=== PATIENT | male | born 1975 ===

== ENCOUNTER 2022-06-27 20:22 | Emergency (ER) | payer SELFPAY ==
[~2022-06-27] VITALS: Ht 72 cm; Wt 72.5 kg
[2022-06-27] MEDS ORDERED: TETRACAINE 0.5% OPHTH SOLN 4 ML BTL (SINGLE DOSE ONLY) ONE (20:38)
[2022-06-27] MEDS ORDERED: prednisoLONE 1% OPTH (PRED FORTE) 5 ML BTL OU SCH (21:15)
[2022-06-27] MEDS ORDERED: prednisoLONE 1% OPTH (PRED FORTE) 5 ML BTL ONE (21:15)
--- NOTE | 2022-06-27 21:17 | ED EENT ---
History of Present Illness General Chief Complaint: Eye Problems Stated Complaint: METAL IN RT EYE Nursing Triage Note: patient stats earlier today he went to get into the back of his truck, a wire sticking out went into his right eye. punctured. patient reports he was tired and went sleep. patient has bleeding/ swelling/ bruising on/around right eye. complaint of pain. Source: patient Exam Limitations: no limitations History of Present Illness Date Seen by Provider: Jun 27, 2022 Time Seen by Provider: 20:58 Allergies and Home Medications Allergies Coded Allergies: Penicillins (Unverified Allergy, Mild, 06/27/22) sulfamethoxazole (Unverified Allergy, Mild, 06/27/22) trimethoprim (Unverified Allergy, Mild, 06/27/22) Patient Home Medication List Home Medication List Reviewed: Yes Clindamycin HCl (Clindamycin HCl) 300 Mg Capsule, 300 MG PO TID Prescribed by: JAYJAY SMITH on 06/27/222200 Past Lrnaade-Anddgp-Pwsdsr Hx Patient Social History Tobacco Use?: Yes Tobacco type used: Cigarettes Smoking Status: Current Everyday Smoker Immunizations Up To Date First/Initial COVID19 Vaccinat: none Second COVID19 Vaccination Fidel: none Physical Exam Vital Signs Vital Signs - First Documented 06/27/22 20:34 Temp 35.4 Pulse 74 Resp 20 B/P (MAP) 132/81 (98) Pulse Ox 98 O2 Delivery Room Air Height, Weight, BMI Height: '" Weight: lbs. oz. kg; 139.00 BMI Method: Progress/Results/Core Measures Results/Orders My Orders Orders - JAYJAY SMITH WAX MACHINE OPERATOR Prednisolone 1% Ophthalmic Ally (Pred For (06/27/22 21:15) Prednisolone 1% Ophthalmic Ally (Pred For (06/27/22 21:15) Tobramycin 0.3% Ophth Soln (Tobrex 0.3% (06/27/22 21:30) Erythromycin Ophth Oint (Erythromycin Op (06/27/22 21:21) Clindamycin Capsule (Cleocin Capsule) (06/27/22 21:45) Medications Given in ED Current Medications Medications Dose Ordered Sig/Dom Route Start Time Stop Time Status Last Admin Dose Admin Clindamycin HCl 300 mg ONCE ONCE PO 06/27/22 21:45 06/27/22 21:46 DC 06/27/22 22:08 300 MG Vital Signs/I&O 06/27/22 22:11 Pulse 70 Resp 20 B/P (MAP) 128/81 Pulse Ox 98 O2 Delivery Room Air Blood Pressure Mean: 98 Departure Impression Primary Impression: Laceration, eyelid, right Additional Impressions: Laceration of margin of eyelid Chemosis Disposition: HOME, SELF-CARE Condition: Stable Departure-Patient Inst. Decision time for Depature: 21:55 Referrals: MATTEO HERNANDEZ OD,LOCAL PHYSICIAN (PCP) Primary Care Physician Patient Instructions: Corneal Abrasion (DC) Add. Discharge Instructions: Plan: 1. Follow up with Dr. Golden's office in the morning at 8:00am. You will present to office and notify them you are coming in from ER visit. Your care was discussed with Dr. Granados. 2. Apply eye drops with ointment every 6 hours. 3. You can use saline drop/ Tetracaine solution 2 drops every 4 hours as needed for pain/comfort. 4. Apply ice 20 minutes at a time to help with swelling. Sleep in reclined position. 5. Take Clindamycin 300mg by mouth three times per day and complete full course. 6. Return to ER for any new, concerning, or worsening symptoms. All discharge instructions reviewed with patient and/or family. Voiced understanding. Scripts Clindamycin HCl (Clindamycin HCl) 300 Mg Capsule 300 MG PO TID, #21 CAP 0 Refills Prov: JAYJAY SMITH WAX MACHINE OPERATOR 06/27/22 JAYJAY SMITH WAX MACHINE OPERATOR Jun 27, 2022 21:17
[2022-06-27] MEDS ORDERED: ERYTHROMYCIN OPHTH OINT 1 GM (SINGLE USE) TUBE ONE (21:21)
[2022-06-27] MEDS ORDERED: TOBRAMYCIN (TOBREX) 0.3% OPHTH SOLN 5 ML OU ONE (21:30)
[2022-06-27] MEDS ORDERED: CLINDAMYCIN 150 MG (CLEOCIN) CAP PO ONE (21:45)
[2022-06-27] MEDS ORDERED: CLIN-144 PO (22:01)
[2022-06-27 22:11] VITALS: BP 128/81
[2022-06-28] MEDS ORDERED: TOBRA/DEXAMETH (TOBRADEX) OPHTH SUSP 2.5 ML BTL OU ONE
== END 2022-06-27 22:11 | disposition home or self-care (01) ==
LOC: ER 20:25
DX: S01.111A Laceration without foreign body of right eyelid and periocular area, initial encounter (principal); H11.421 Conjunctival edema, right eye; F17.210 Nicotine dependence, cigarettes, uncomplicated; Z28.310 Unvaccinated for COVID-19; Z88.0 Allergy status to penicillin; Z88.2 Allergy status to sulfonamides; W26.8XXA Contact with other sharp object(s), not elsewhere classified, initial encounter
CPT/HCPCS: 99283

== ENCOUNTER 2022-11-14 12:39 | Emergency (ER) | payer SELFPAY ==
[~2022-11-14] VITALS: Ht 182.8 cm; Wt 74.8 kg
[~2022-11-14 12:39] MED LIST: CLIN-144 PO
[2022-11-14] MEDS ORDERED: NS IV 1000 ML 1,000 ML IV STA (13:04)
--- NOTE | 2022-11-14 13:08 | ED GU-Male ---
General Chief Complaint: - Reproductive Stated Complaint: LOWER BACK AND RT SIDE PAIN Nursing Triage Note: PT AMB TO TRIAGE WITH COMPLAINT OF RIGHT SIDE FLANK PAIN AND PAINFUL URINATION. STATES STARTED IN THE MIDDLE OF THE NIGHT. Source: patient Exam Limitations: no limitations (MICHAEL BRENNER) History of Present Illness Date Seen by Provider: Nov 14, 2022 Time Seen by Provider: 13:06 Initial Comments Patient is a 47-year-old male who presents ED with cute onset of right flank. Started yesterday evening. Denies any trauma or injury. No radiating pain. Described as sharp and constant with episodes of increasing pain. Denies nausea vomiting diarrhea. Reports some discomfort with urination and dark urine. Denies of any penile discharge. History of kidney stones 5 years ago. Denies taking thing for pain. Denies fever, chills, body aches, chest pain, shortness of breath, cough. (MICHAEL BRENNER) Allergies and Home Medications Allergies Coded Allergies: Penicillins (Unverified Allergy, Mild, 06/27/22) sulfamethoxazole (Unverified Allergy, Mild, 06/27/22) trimethoprim (Unverified Allergy, Mild, 06/27/22) Patient Home Medication List Home Medication List Reviewed: Yes (MICHAEL BRENNER) Clindamycin HCl (Clindamycin HCl) 300 Mg Capsule, 300 MG PO TID Prescribed by: JAYJAY SMITH on 06/27/222200 Hydrocodone/Acetaminophen (Hydrocodone-Acetamin 5-325 mg) 5 Mg-325 Mg Tablet, 1 TAB PO Q4H PRN for PAIN-MODERATE (5-7) Prescribed by: KAYLA ADAME on 11/14/22 141 Ondansetron (Ondansetron Odt) 4 Mg Tab.rapdis, 4 MG SL Q4H PRN for NAUSEA/VOMITING Prescribed by: KAYLA ADAME on 11/14/22 141 Tamsulosin HCl (Flomax) 0.4 Mg Cap, 0.4 MG PO DAILY Prescribed by: KAYLA ADAME on 11/14/22 1416 Review of Systems Review of Systems Constitutional: No chills, No diaphoresis, No fever, No malaise EENTM: No ear pain, No blurred vision, No double vision Respiratory: No cough Cardiovascular: No chest pain Gastrointestinal: No abdominal pain, No diarrhea, No nausea, No vomiting Genitourinary: burning; denies discharge; flank pain; denies pain, denies urgency Musculoskeletal: back pain; No joint pain (MICHAEL BRENNER) All Other Systemes Reviewed Negative Unless Noted: Yes (MICHAEL BRENNER) Past Hbzbfid-Ubucob-Xyeunv Hx Patient Social History Tobacco Use?: Yes Tobacco type used: Cigarettes Smoking Status: Current Everyday Smoker Use of E-Cig and/or Vaping dev: No Substance use?: No Alcohol Use?: No Pt feels they are or have been: No (MICHAEL BRENNER) Immunizations Up To Date First/Initial COVID19 Vaccinat: none Second COVID19 Vaccination Fidel: none Third COVID19 Vaccination Date: none (MICHAEL BRENNER) Physical Exam Vital Signs Vital Signs - First Documented 11/14/22 12:48 Temp 36.8 Pulse 79 Resp 16 B/P (MAP) 154/90 (111) Pulse Ox 99 O2 Delivery Room Air (NICOLLE RETANA MD) Vital Signs Capillary Refill : Less Than 3 Seconds (MICHAEL BRENNER) Height, Weight, BMI Height: '" Weight: lbs. oz. kg; 22.00 BMI Method: General Appearance: WD/WN, no apparent distress HEENT: PERRL/EOMI, normal ENT inspection, TMs normal, pharynx normal Neck: non-tender, full range of motion, supple Cardiovascular: regular rate, rhythm, no edema, no gallop, no JVD Respiratory: chest non-tender, lungs clear, normal breath sounds, no respiratory distress, no accessory muscle use Gastrointestinal: normal bowel sounds, non tender, soft, no organomegaly Back: normal inspection, CVA tenderness (R) Extremities: non-tender, normal inspection, no pedal edema Neurologic/Psychiatric: cargo and container inspector II-XII nml as tested, no motor/sensory deficits, alert, normal mood/affect, oriented x 3 Skin: normal color, warm/dry (MICHAEL BRENNER) Progress/Results/Core Measures Suspected Sepsis SIRS Temperature: Pulse: 79 Respiratory Rate: 16 Laboratory Tests 11/14/22 13:15: White Blood Count 5.8 Blood Pressure 154 /90 Mean: 111 Laboratory Tests 11/14/22 13:15: Creatinine 0.91, Platelet Count 312, Total Bilirubin 0.5 (MICHAEL BRENNER) Results/Orders Lab Results Laboratory Tests Test 11/14/22 13:00 11/14/22 13:15 Range/Units Urine Color YELLOW Urine Clarity CLEAR Urine pH 6.5 5-9 Urine Specific [place] 1.020 1.016-1.022 Urine Protein NEGATIVE NEGATIVE Urine Glucose (UA) NEGATIVE NEGATIVE Urine Ketones NEGATIVE NEGATIVE Urine Nitrite NEGATIVE NEGATIVE Urine Bilirubin NEGATIVE NEGATIVE Urine Urobilinogen 0.2 < = 1.0 MG/DL Urine Leukocyte Esterase NEGATIVE NEGATIVE Urine RBC (Auto) 2+ H NEGATIVE Urine RBC RARE /HPF Urine WBC 0-2 /HPF Urine Squamous Epithelial Cells 2-5 /HPF Urine Crystals NONE /LPF Urine Bacteria NEGATIVE /HPF Urine Casts NONE /LPF Urine Mucus NEGATIVE /LPF Urine Other FEW SPERM H /HPF Urine Culture Indicated NO White Blood Count 5.8 4.3-11.0 10^3/uL Red Blood Count 4.65 4.30-5.52 10^6/uL Hemoglobin 13.9 13.3-17.7 g/dL Hematocrit 40 40-54 % Mean Corpuscular Volume 86 80-99 fL Mean Corpuscular Hemoglobin 30 25-34 pg Mean Corpuscular Hemoglobin Concent 35 32-36 g/dL Red Cell Distribution Width 14.1 10.0-14.5 % Platelet Count 312 130-400 10^3/uL Mean Platelet Volume 9.7 9.0-12.2 fL Immature Granulocyte % (Auto) 0 % Neutrophils (%) (Auto) 64 42-75 % Lymphocytes (%) (Auto) 22 12-44 % Monocytes (%) (Auto) 10 0-12 % Eosinophils (%) (Auto) 3 0-10 % Basophils (%) (Auto) 2 0-10 % Neutrophils # (Auto) 3.7 1.8-7.8 10^3/uL Lymphocytes # (Auto) 1.3 1.0-4.0 10^3/uL Monocytes # (Auto) 0.6 0.0-1.0 10^3/uL Eosinophils # (Auto) 0.2 0.0-0.3 10^3/uL Basophils # (Auto) 0.1 0.0-0.1 10^3/uL Immature Granulocyte # (Auto) 0.0 0.0-0.1 10^3/uL Sodium Level 138 135-145 MMOL/L Potassium Level 3.5 L 3.6-5.0 MMOL/L Chloride Level 106 98-107 MMOL/L Carbon Dioxide Level 23 21-32 MMOL/L Anion Gap 9 5-14 MMOL/L Blood Urea Nitrogen 8 7-18 MG/DL Creatinine 0.91 0.60-1.30 MG/DL Estimat Glomerular Filtration Rate 103 BUN/Creatinine Ratio 9 Glucose Level 134 H 70-105 MG/DL Calcium Level 9.1 8.5-10.1 MG/DL Corrected Calcium 8.9 8.5-10.1 MG/DL Total Bilirubin 0.5 0.1-1.0 MG/DL Aspartate Amino Transf (AST/SGOT) 19 5-34 U/L Alanine Aminotransferase (ALT/SGPT) 35 0-55 U/L Alkaline Phosphatase 66 40-136 U/L Total Protein 6.9 6.4-8.2 GM/DL Albumin 4.2 3.2-4.5 GM/DL Lipase 36 8-78 U/L (NICOLLE RETANA MD) Vital Signs/I&O 11/14/22 11/14/22 12:48 14:20 Temp 36.8 Pulse 79 89 Resp 16 18 B/P (MAP) 154/90 (111) 144/82 Pulse Ox 99 99 O2 Delivery Room Air Room Air (NICOLLE RETANA MD) Vital Signs/I&O Capillary Refill : Less Than 3 Seconds (MICHAEL BRENNER) Blood Pressure Mean: 111 Departure Communication (PCP) Reviewed previous ER visits, H&P, testing. Complaint of right flank pain cute onset yesterday evening. Dark urine with some pain. History of nephrolithiasis. Due to current complaints CBC, CMP, urinalysis CT abdomen and pelvis without contrast was ordered. Urinalysis positive for hematuria without evidence of infection. CBC, CMP otherwise grossly unremarkable. Patient was given a IV and started on a liter of fluid and Toradol with improvement of pain. CT abdomen and pelvis shows a nonobstructing 1 mm punctuate kidney stone. Discussed all results with patient. Patient states pain is much better at this time. Requesting to be discharged. Provided [facility] urology outpatient follow- up. Recommend continue hydration. We will provide Flomax, Zofran for nausea and a few days worth of pain medication. If any worsening symptoms return back to ED for further evaluation (MICHAEL BRENNER) Impression Primary Impression: Nephrolithiasis Disposition: HOME, SELF-CARE Condition: Stable Departure-Patient Inst. Decision time for Depature: 14:14 (MICHAEL BRENNER) Referrals: [facility],LOCAL PHYSICIAN (PCP) Primary Care Physician Patient Instructions: Kidney Stone, Adult ED Scripts Ondansetron (Ondansetron Odt) 4 Mg Tab.rapdis 4 MG SL Q4H PRN for NAUSEA/VOMITING, #6 TAB Prov: MICHAEL BRENNER 11/14/22 Hydrocodone/Acetaminophen (Hydrocodone-Acetamin 5-325 mg) 5 Mg-325 Mg Tablet 1 TAB PO Q4H PRN for PAIN-MODERATE (5-7), #8 TAB Prov: MICHAEL BRENNER 11/14/22 Tamsulosin HCl (Flomax) 0.4 Mg Cap 0.4 MG PO DAILY for 14 Days, #14 CAP Prov: MICHAEL BRENNER 11/14/22 Work/School Note: Work Release Form Date Seen in the Emergency Department: Nov 14, 2022 Return to Work: Nov 16, 2022 ATTENDING PHYSICIAN NOTE: I was physically present as attending physician in the emergency department during the care of this patient, but I was not directly involved in the decision making or delivery of care for this patient. (NICOLLE RETANA MD) MICHAEL BRENNER Nov 14, 2022 13:08 NICOLLE RETANA MD Nov 15, 2022 09:07
[2022-11-14 13:09] LABS: BILIRUBIN,URINE NEGATIVE (NEGATIVE); CLARITY,URINE CLEAR; COLOR,URINE YELLOW; GLUCOSE, URINE (UA) NEGATIVE (NEGATIVE); KETONES,URINE NEGATIVE (NEGATIVE); LEUKOCYTE ESTERASE ,URINE NEGATIVE (NEGATIVE); NITRITE,URINE NEGATIVE (NEGATIVE); PH,URINE 6.5 (5-9); PROTEIN,URINE NEGATIVE (NEGATIVE)
[2022-11-14 13:15] LABS: BACTERIA,URINE NEGATIVE /HPF; RBC,URINE RARE /HPF; URINE OTHER FEW SPERM /HPF; WBC,URINE 0-2 /HPF
[2022-11-14] MEDS ORDERED: KETOROLAC 30 MG/ML VIAL IVP ONE (13:15)
[2022-11-14 13:22] LABS: BASOPHILS # (AUTO) 0.1 10^3/uL (0.0-0.1); BASOPHILS % (AUTO) 2 % (0-10); EOSINOPHILS # (AUTO) 0.2 10^3/uL (0.0-0.3); EOSINOPHILS % (AUTO) 3 % (0-10); HEMATOCRIT 40 % (40-54); HEMOGLOBIN 13.9 g/dL (13.3-17.7); LYMPHOCYTES # (AUTO) 1.3 10^3/uL (1.0-4.0); LYMPHOCYTES % (AUTO) 22 % (12-44); MEAN CORPUSCULAR HEMOGLOBIN 30 pg (25-34); MEAN CORPUSCULAR HGB CONC 35 g/dL (32-36); MEAN CORPUSCULAR VOLUME 86 fL (80-99); MEAN PLATELET VOLUME 9.7 fL (9.0-12.2); MONOCYTES # (AUTO) 0.6 10^3/uL (0.0-1.0); MONOCYTES % (AUTO) 10 % (0-12); NEUTROPHILS # (AUTO) 3.7 10^3/uL (1.8-7.8); NEUTROPHILS % (AUTO) 64 % (42-75); PLATELET COUNT 312 10^3/uL (130-400); WHITE BLOOD COUNT 5.8 10^3/uL (4.3-11.0)
[2022-11-14 13:30] LABS: ALBUMIN 4.2 GM/DL (3.2-4.5); POTASSIUM 3.5 MMOL/L (3.6-5.0)
[2022-11-14 13:31] LABS: CALCIUM 9.1 MG/DL (8.5-10.1)
[2022-11-14 13:33] LABS: TOTAL PROTEIN 6.9 GM/DL (6.4-8.2)
[2022-11-14 13:34] LABS: BILIRUBIN,TOTAL 0.5 MG/DL (0.1-1.0)
[2022-11-14 13:36] LABS: CREATININE SERUM 0.91 MG/DL (0.60-1.30)
--- NOTE | 2022-11-14 13:55 | Diagnostic Imaging Report ---
PROCEDURE: CT urinary tract, rule out kidney stone. TECHNIQUE: Multiple contiguous axial images were obtained through the abdomen and pelvis without the use of intravenous contrast. Auto Exposure Controls were utilized during the CT exam to meet ALARA standards for radiation dose reduction. INDICATION: Right flank pain COMPARISON: None available. FINDINGS: The visualized lung bases are clear. The unenhanced liver and spleen are unremarkable. The adrenal glands are unremarkable. The pancreas is unremarkable. The gallbladder is unremarkable. Punctate 1 mm nonobstructing calculus within the mid pole of the right kidney. Otherwise, the right kidney and right ureter are unremarkable. The left kidney and left ureter are unremarkable, mild vascular calcifications without aneurysmal dilatation of the abdominal aorta. The appendix is unremarkable. The urinary bladder is predominantly decompressed, therefore not well evaluated. No bowel obstruction or pneumatosis. No significant adenopathy, free air, or free fluid, mild scattered osseous degenerative changes without acute osseous abnormality. IMPRESSION: Punctate 1 mm nonobstructing right renal calculus. Additional findings as above. Dictated by: Dictated on workstation # [id number]
[2022-11-14] MEDS ORDERED: TMSL.4C PO (14:16)
[2022-11-14] MEDS ORDERED: ACHD5005 PO (14:16)
[2022-11-14] MEDS ORDERED: ONDA4TAB11 SL (14:16)
[2022-11-14 14:20] VITALS: BP 144/82
== END 2022-11-14 14:20 | disposition home or self-care (01) ==
LOC: EDUNIT# 12:39 → ER 12:42
DX: N20.0 Calculus of kidney (principal); F17.210 Nicotine dependence, cigarettes, uncomplicated; Z28.310 Unvaccinated for COVID-19
CPT/HCPCS: 36415; 74176; 80053; 81000; 83690; 85025